=== PATIENT | male | born 1975 | race Caucasian/White ===

== ENCOUNTER → 2022-11-10 15:02 | Outpatient (REF) | payer OTHER, SELFPAY ==
--- NOTE | 2022-11-10 15:13 | CA_ITS ---
Transthoracic Echocardiogram Patient (Last, First, Middle): Ronald Perry, Gender: Male Date of : 1975 Age: 47 Procedure Date: 11/10/2022 Procedure Type: Transthoracic Echocardiogram Location: [place] Height: 185.42 cm Weight: 132.45 kg BSA: 2.53 m2 Heart Rate: 92 bpm BP: 110 / 70 mmHg Clinical Trial Assistant: JORGE Referring MD: Yvonne Delgadillo NP Waist Presser: Ron Robledo MD Symptoms: ATRIAL FLUTTER I48.92 Study Quality: Adequate w contrast ECG Rhythm: Atrial flutter Conclusions: - 1. Severe LV systolic dysfunction with LVEF of 25-30% 2. At least mildly dilated left atrium 3. Normal cardiac valvular Doppler 4. Normal RV systolic pressure 5. No gross pericardial effusion Findings Procedure Information Contrast agent, definity, is being given per protocol without apparent complications. Left Ventricle Normal left ventricular cavity size. There is normal left ventricular wall thickness. The left ventricular systolic function is severely decreased. The visually estimated ejection fraction is between 25-30%. Diastolic function is indeterminate on the basis of available data. Right Ventricle Normal right ventricular cavity size and systolic function. Atria The left atrium is mildly dilated. Interatrial shunt cannot be excluded. The right atrium is likely dilated. Aortic Valve Normal aortic valve structure and function. There is no aortic valve stenosis. There is no aortic valve regurgitation. Mitral Valve Normal mitral valve structure and function. There is trace mitral valve regurgitation. There is no mitral valve stenosis. Pulmonic Valve The pulmonic valve is likely normal. Tricuspid Valve Normal tricuspid valve structure. There is mild tricuspid valve regurgitation. The right ventricular systolic pressure is normal. The right ventricular systolic pressure is 31 mmHg. Normal right atrial pressure. There is no evidence of pulmonary hypertension. Great Vessels All visible segments of the aorta are normal in size. The pulmonary artery was not well visualized. Venous The inferior vena cava is normal in size and collapses greater than 50% with inspiration. Pericardium/Pleural There is no evidence of pericardial effusion. Prior Study Comparison No prior study available for comparison. Measurements 2D Linear Measurements IVSd: 1.05 0.6-0.9/0.6-1.0 cm LVIDd: 5.46 3.9-5.3/4.2-5.9 cm LVIDd Index: 2.16 2.4-3.2/2.2-3.1 cm/m2 LVIDs: 4.07 2.0-3.6 cm LVPWd: 0.84 0.7-1.1 cm LA Diam: 4.40 2.7-3.8/3.0-4.0 cm LAIDs Index: 1.74 1.5-2.3 cm/m2 LV Mass: 243.83 67-162/88-224 g LV Mass Index: 96.38 43-95/49-115 g/m2 LVOT Diam: 2.50 3.0+(-)1.3 cm 2D Systolic Function EF 4C: 30.50 >55% EF 2C: 27.70 >55% EF BiP: 29.10 >55% Aortic Valve AoV Pk Maxime: 1.01 AoV Pk Grad: 4.00 ITZEL: 4.55 LVOT LVOT Pk Maxime: 0.94 LVOT Mn Maxime: 0.76 LVOT VTI: 0.19 LVOT Pk Grad: 4.00 LVOT Mn Grad: 3.00 LVOT Diam: 2.50 LVOT Area: 4.91 Right Ventricle TAPSE (mm): 20.70 TVS' Maxime: 12.00 Tricuspid Valve TR Pk Maxime: 2.39 TR Pk Grad: 23.00 RA Press: 8.00 RVSP: 31.00 Great Vessels Aorta Sinus of Valsalva: 3.90 2.0-3.5 cm Ao Asc: 3.60 2.1-3.4 cm Pulmonary Valve PV Pk Maxime: 0.70 Peak PV Grad: 2.00 Updated in Other Vendor System with Status of Final Ron Robledo MD electronically signed on 11/11/2022 3:43:14 PM with status of Final
== END ==
LOC: HO.CARD 15:02
PROVIDERS: Visit Provider Nurse Practitioner
DX: I48.92 Unspecified atrial flutter (principal)
CPT/HCPCS: 93306; Q9957

== ENCOUNTER → 2022-11-14 09:00 | Outpatient (BNVA) | payer OTHER, SELFPAY | PROVIDERS: PCP Nurse Practitioner; Visit Provider Internal Medicine Cardiovascular Disease | DX: I48.92 Unspecified atrial flutter (principal) | CPT/HCPCS: 93005 ==

== ENCOUNTER 2022-11-16 12:11 | Day surgery (SDC) | payer OTHER, SELFPAY ==
[2022-11-16] VITALS (7 sets, daily range): BP systolic 103–130; BP diastolic 53–81; PULSE 62–132; RESP 14–18; TEMP 36.2–37.1; O2SAT 95–99; BMI 38.5
[2022-11-16] MEDS: Lactated Ringers 1,000 ML 50 ML IVCONT (13:06)
--- NOTE | 2022-11-16 13:06 | P.CONAN_ITS ---
HPI - Anesthesia Eval Consult details Narrative: for cardioversion PMFSH Active Problems Active Problems: All Active Problems (Updated 11/16/22 @ 12:15 by Keyla De Luna RN) Cardiomyopathy (Acute) Atrial flutter with rapid ventricular response (Acute) Past Medical History Medical History (Updated 11/16/22 @ 12:15 by Keyla De Luna RN) Depression Family History Family History Father No problems noted. Mother No problems noted. Family history of problems with anesthesia: No Surgical History Surgical History (Updated 11/16/22 @ 12:19 by Keyla De Luna RN) [place] teeth extracted History of Problems with Anesthesia: No Social History Social History Patient Tobacco Use Status: Current someday Tobacco user Use of substances other than those prescribed or required for medical reasons: Yes Substance Use Type Other:: vape Are you DNR?: No Advance Directives: No Advance Directives Information Provided: Yes Meds Allergies Allergy/AdvReac Type Severity Reaction Status Date / Time No Known Allergies Allergy Verified 11/14/22 09:07 Active Medications: Current Medications Lactated Ringer's (Lr) 1,000 mls @ 50 mls/hr IVCONT .Q20H [facility] Home Medications Medication Instructions Recorded Confirmed Last Taken Type bupropion HCl 150 mg tablet,12 hr 150 mg PO DAILY 11/14/22 11/16/22 Unknown History sustained-release (Wellbutrin SR) bupropion HCl 300 mg 24 hr tablet, 300 mg PO QAM 11/14/22 11/16/22 Unknown History extended release (Wellbutrin XL) digoxin 250 mcg (0.25 mg) tablet 250 mcg PO DAILY 11/14/22 11/16/22 Unknown History metoprolol tartrate 25 mg tablet 25 mg PO BID 11/14/22 11/16/22 11/16/22 10:30 History rivaroxaban 20 mg tablet (Xarelto) 20 mg PO DAILY 11/14/22 11/16/22 11/16/22 10: 30 History trazodone 50 mg tablet 25 mg PO DAILY 11/14/22 11/16/22 Unknown History Exam Exam Date and Time: November 16, 2022 1306 Height,Weight and Vital Signs: Height 6 ft 1 in Weight 132.449 kg Last Vital Signs Temp 98.3 F 11/16/22 12:41 Pulse 132 H 11/16/22 12:41 Resp 18 11/16/22 12:41 BP 104/75 11/16/22 12:41 Pulse Ox 95 11/16/22 12:41 O2 Del Method Room Air 11/16/22 12:41 Airway Mallampati Class: III TM Dist: <=3cm Neck ROM: Full Heart: ok. afib/flut Lungs: ok Assessment and Plan Assessment Anesthesia Assessment: Anesthesia Plan Discussed and Chart Reviewed Final Anesthetic Review Family History of Problems with Anesthesia: No History of Problems with Anesthesia: No NPO: Yes ASA Class: III Final Preanesthetic Review: No Changes in Pt Med Stat, Meds/Allgs Chart Reviewed, Consent Obtained/Reviewed and Anes Risks/Benef Reviewed Patient Risk: Intermediate Procedure Risk: Intermediate Anesthetic Plan Anesthetic Plan: MAC: and Agree w/ Assess. and Plan Disposition: Standard PACU
--- NOTE | 2022-11-16 13:16 | MHC.SHP ---
Pre-Procedural Eval Section A Date of Service: 11/16/22 The patient is an INPATIENT: No Changes since office visit: Yes Patient answered all questions; No Cold of Flu in the past 2 weeks, No New Medical Problems and No Changes in Medication The History & Physical has been completed within 30 days and I have reviewed it.: Yes Section B Chief Complaint: afib Allergies: Allergies Allergy/AdvReac Type Severity Reaction Status Date / Time No Known Allergies Allergy Verified 11/14/22 09:07 Plan I have reviewed the history and physical and performed a pertinent physical examination on my patient. No changes have occurred unless specified. Time Spent With Patient Time: Total time managing care of this patient today ____ minutes.
--- NOTE | 2022-11-16 14:14 | ECG_ITS ---
Test Reason : s/p cardioversion Blood Pressure : / mmHG Vent. Rate : 066 BPM Atrial Rate : 066 BPM P-R Int : 212 ms QRS Dur : 088 ms QT Int : 376 ms P-R-T Axes : -06 004 024 degrees QTc Int : 394 ms Sinus rhythm with 1st degree A-V block Otherwise normal ECG No previous ECGs available Referred By: Ron Robledo Electronically Signed By:ARABELLA VASQUEZ
--- NOTE | 2022-11-16 14:15 | P.PNCAR_ITS ---
Cardioversion Procedure Note Cardioversion Date of Procedure: Today Ordering Provider: Myself Performing Provider: Myself Indication for Procedure: Persistent symptomatic atrial flutter with severe LV systolic dysfunction Pre-Op Diagnosis: Same Post-Op Diagnosis: None Performed with Transesophageal Echo: No History: See my office consult Consent: Verbal and Written consent was obtained from the patient before starting and after confirming oral anticoagulation use and withholding of digoxin. The patient was made aware of the risk of synchronized cardioversion including benefits and alternatives Procedure: After consent obtained, cardioversion pads were attached anteroposterior configuration and the patient was sedated by the anesthesia team. Once adequate sedation achieved, patient was delivered 200 joules of biphasic synchronized energy in anteroposterior configuration Complications: None Impression: Successful conversion to sinus rhythm Recommendations: 1. 12 lead EKG 2. Discontinue digoxin 3. Continue metoprolol and Xarelto 4. Outpatient sleep study 5. Avoidance of stimulants next 6. Will follow-up as outpatient after Holter yeny weeks
== END 2022-11-16 15:16 | disposition home or self-care (01) ==
PROVIDERS: PCP Nurse Practitioner; Visit Provider Internal Medicine Cardiovascular Disease
PROC: 5A2204Z Restoration of Cardiac Rhythm, Single (ICD-10-PCS; principal; 2022-11-16 13:40)
DX: I48.92 Unspecified atrial flutter (principal); I42.9 Cardiomyopathy, unspecified; Z79.01 Long term (current) use of anticoagulants; Z87.891 Personal history of nicotine dependence
CPT/HCPCS: 92960; 93005

== ENCOUNTER → 2022-12-06 13:08 | Outpatient (REF) | payer OTHER, SELFPAY ==
--- NOTE | 2022-12-06 13:12 | HM_ITS ---
Conclusion: 1. Patient was monitored for total period of 2 days 2. Baseline was sinus rhythm with average heart of 63 beats per minute 3. Frequent sinus bradycardia noted with 45% of time heart rate below 60 beats per minute 4. No significant pauses noted 5. No patient reported symptoms MTDD
== END ==
LOC: HO.CARD 13:08
PROVIDERS: Visit Provider Internal Medicine Cardiovascular Disease
DX: I48.92 Unspecified atrial flutter (principal)
CPT/HCPCS: 93225

== ENCOUNTER → 2022-12-08 15:05 | Outpatient (REF) | payer OTHER, SELFPAY ==
--- NOTE | 2022-12-08 15:09 | CA_ITS ---
Transthoracic Echocardiogram Patient (Last, First, Middle): Ronald Perry, Gender: Male Date of : 1975 Age: 47 Procedure Date: 12/08/2022 Procedure Type: Transthoracic Echocardiogram Location: [place] Height: 185.42 cm Weight: 129.73 kg BSA: 2.51 m2 Heart Rate: 61 bpm BP: 102 / 82 mmHg Nuclear Medicine Tech: ALAN Referring MD: Ron Robledo MD Tractor Trailer Moving Van Driver: Ron Robledo MD Symptoms: I42.9 - Cardiomyopathy, unspecified Study Quality: Adequate/Limited echo ordered ECG Rhythm: Sinus Conclusions: - Normal LV systolic function with LVEF of 55-60% Findings Procedure Information Contrast agent, definity, is being given per protocol without apparent complications. Left Ventricle Normal left ventricular size, thickness, and systolic function. The visually estimated ejection fraction is between 55-60%. Spectral Doppler is indicative of a normal filling pattern. Prior Study Comparison Significant changes compared to prior study dated: 11/10/2022. LV systolic function is normalized Measurements 2D Linear Measurements IVSd: 1.00 0.6-0.9/0.6-1.0 cm LVIDd: 5.51 3.9-5.3/4.2-5.9 cm LVIDd Index: 2.20 2.4-3.2/2.2-3.1 cm/m2 LVIDs: 3.50 2.0-3.6 cm LVPWd: 1.03 0.7-1.1 cm LV Mass: 271.30 67-162/88-224 g LV Mass Index: 108.09 43-95/49-115 g/m2 2D Systolic Function EF 4C: 55.00 >55% EF 2C: 56.20 >55% EF BiP: 55.00 >55% Mitral Valve MV Pk E: 0.87 MV PK A: 0.68 MV Decel Time: 238.00 E/A: 1.30 E'Lateral: 11.60 E'Medial: 7.72 E/E' Med: 11.30 E/E' Lat: 7.50 PHT: 70.00 MVA PHT: 3.14 Decel [place]: 3.66 Diastolic Function MV Pk E: 0.87 MV Pk A: 0.68 E/A: 1.30 E'Medial: 7.72 E/E' Med: 11.30 E' Laterial: 11.60 E/E' Lat: 7.50 Right Ventricle TAPSE (mm): 29.80 TVS' Maxime: 13.40 Tricuspid Valve RA Press: 8.00 Updated in Other Vendor System with Status of Final Ron Robledo MD electronically signed on 12/10/2022 10:18:27 AM with status of Final
== END ==
LOC: HO.CARD 15:05
PROVIDERS: PCP Nurse Practitioner; Visit Provider Internal Medicine Cardiovascular Disease
DX: I42.9 Cardiomyopathy, unspecified (principal)
CPT/HCPCS: 93308; Q9957

== ENCOUNTER → 2023-07-26 09:59 | Outpatient (REF) | payer OTHER, SELFPAY ==
--- NOTE | 2023-07-26 10:03 | CA_ITS ---
Transthoracic Echocardiogram Patient (Last, First, Middle): Ronald Perry, Gender: Male Date of : 1975 Age: 48 Procedure Date: 07/26/2023 Procedure Type: Transthoracic Echocardiogram Location: [facility] Height: 185.42 cm Weight: 121.11 kg BSA: 2.43 m2 Heart Rate: bpm BP: 120 / 75 mmHg Extractor Loader And Unloader: ALAN Referring MD: Aarti Marsh PA-C Symptoms: I42.0 CARDIOMYOPATHY Study Quality: Adequate with contrast ECG Rhythm: Sinus Conclusions: - The left ventricular systolic function is normal. The calculated ejection fraction is 61% by biplane method. - No obvious valvular pathology seen on this study. Findings Procedure Information Contrast agent, definity, is being given per protocol without apparent complications. Left Ventricle Normal left ventricular cavity size. There is mildly increased left ventricular wall thickness. The left ventricular systolic function is normal. The calculated ejection fraction is 61% by biplane method. There is no evidence of regional wall motion abnormalities. Diastolic function is normal for age. Right Ventricle Mildly increased right ventricular cavity size. There is normal right ventricular systolic function. Atria Both atria are normal in size. Aortic Valve There is a normal trileaflet aortic valve. There is mild calcification of the aortic valve. There is no aortic valve stenosis. There is no aortic valve regurgitation. Mitral Valve The mitral valve appears normal. There is no mitral valve regurgitation. There is no mitral valve stenosis. Pulmonic Valve The pulmonic valve is likely normal. Tricuspid Valve There is trace tricuspid valve regurgitation. There is no evidence of pulmonary hypertension. Great Vessels The asc aorta is normal in size. Venous The inferior vena cava is normal in size and collapses greater than 50% with inspiration. Pericardium/Pleural There is no evidence of pericardial effusion. Prior Study Comparison No significant change compared to prior study dated: 12/08/2022. Recommendations, Care & Conclusions No obvious valvular pathology seen on this study. Measurements 2D Linear Measurements IVSd: 1.08 0.6-0.9/0.6-1.0 cm LVIDd: 5.35 3.9-5.3/4.2-5.9 cm LVIDd Index: 2.20 2.4-3.2/2.2-3.1 cm/m2 LVIDs: 3.52 2.0-3.6 cm LVPWd: 1.01 0.7-1.1 cm LA Diam: 4.10 2.7-3.8/3.0-4.0 cm LAIDs Index: 1.69 1.5-2.3 cm/m2 LV Mass: 269.05 67-162/88-224 g LV Mass Index: 110.72 43-95/49-115 g/m2 LVOT Diam: 2.40 3.0+(-)1.3 cm 2D Systolic Function EF 4C: 61.00 >55% EF 2C: 59.10 >55% EF BiP: 60.90 >55% Mitral Valve MV Pk E: 0.68 MV PK A: 0.60 MV Decel Time: 232.00 E/A: 1.10 E'Lateral: 10.90 E'Medial: 7.83 E/E' Med: 8.70 E/E' Lat: 6.20 PHT: 68.00 MVA PHT: 3.24 Decel [place]: 2.93 Aortic Valve AoV Pk Maxime: 1.34 AoV Mn Maxime: 0.97 AoV VTI: 0.33 AoV Pk Grad: 7.00 Aov Mn Grad: 4.00 ITZEL Cont.VTI: 3.34 LVOT LVOT Pk Maxime: 1.09 LVOT Mn Maxime: 0.75 LVOT VTI: 0.24 LVOT Pk Grad: 5.00 LVOT Mn Grad: 3.00 LVOT Diam: 2.40 LVOT Area: 4.52 Diastolic Function MV Pk E: 0.68 MV Pk A: 0.60 E/A: 1.10 E'Medial: 7.83 E/E' Med: 8.70 E' Laterial: 10.90 E/E' Lat: 6.20 Right Ventricle TAPSE (mm): 24.90 TVS' Maxime: 13.50 Tricuspid Valve TR Pk Maxime: 2.09 TR Pk Grad: 17.00 RA Press: 3.00 RVSP: 20.00 Great Vessels Aorta Sinus of Valsalva: 4.14 2.0-3.[address] [place]: 3.50 1.7-3.4 cm Ao Asc: 3.50 2.1-3.4 cm Ao Arch: 2.90 Updated in Other Vendor System with Status of Final Otf Rae MD electronically signed on 07/27/2023 11:53:43 AM with status of Final
== END ==
LOC: HO.CARD 09:59
PROVIDERS: PCP Nurse Practitioner; Visit Provider Physician Assistant
DX: I42.9 Cardiomyopathy, unspecified (principal)
CPT/HCPCS: 93306; Q9957

== ENCOUNTER → 2023-07-26 10:03 | Outpatient (BNV) | payer OTHER, SELFPAY | PROVIDERS: PCP Nurse Practitioner; Visit Provider Internal Medicine | DX: I42.0 Dilated cardiomyopathy (principal) | CPT/HCPCS: 93306 ==

== ENCOUNTER 2023-07-31 15:05 | Outpatient (AMB) | payer OTHER, SELFPAY ==
--- NOTE | 2023-07-31 15:13 | MHC.OFFVIS ---
Intake Vital Signs 07/31/23 15:14 Height 6 ft 1 in Weight 291 lb 7.218 oz BMI 38.4 BP 120/64 Blood Pressure Location Lt brachial Position Sitting Pulse 89 Intake Visit Reasons: Preop colonoscopy Intake Note: preop colonoscopy/ pt its feeling fine. Field Support Representative Required: No Accompanied by: Self / Same As Patient Allergies No Known Allergies Allergy (Verified 11/14/22 09:07) Medication List - Last Reconciled 07/31/23 by Ron Robledo MD bupropion HCl (Wellbutrin SR) 150 mg PO DAILY bupropion HCl (Wellbutrin XL) 300 mg PO QAM trazodone 25 mg PO DAILY HPI HPI Comments History of Present Illness Details Ronald comes for follow-up after a long gap. He had a cardioversion done acutely in November due to difficult control atrial flutter with severe LV systolic dysfunction. Since then he had echocardiogram in April which has shown improvement in LV ejection fraction 55-60%. No follow-up since then. In December he had undergone ablation for the atrial flutter which was successfully completed. However I did not get any copy of the report. Since then he had another echocardiogram recently which showed normal LV ejection fraction of 60 65%. Has also modified his lifestyle reduced his caffeine intake by 50%. Also started exercising more and is been losing weight. He is avoiding other stimulants such as Adderall. He is noted above 4 times that he has not felt well and he has done EKG and is noted to have atrial fibrillation. He now thinks that this might be related to use of alcohol at that time. He has currently not on any cardiac medications. He continues to have issues with daytime somnolence. He does think he might have apnea but no workup has been done so far. [facility] Medical History Obesity Paroxysmal atrial fibrillation Atrial flutter with rapid ventricular response Cardiomyopathy Depression Surgical History [place] teeth extracted Family History Father No problems noted. Mother No problems noted. Social History Patient Tobacco Use Status: Current someday Tobacco user Review of Systems Const Reports chills, Reports fatigue, Reports fever(s), Reports frequent falls, Reports weakness, Reports weight gain and Reports weight loss ENT Reports dizziness Card Reports chest pain, Reports leg edema, Reports lightheadedness, Reports palpitations, Reports dyspnea and Reports dyspnea on exertion Resp Reports cough, Reports dyspnea and Reports dyspnea on exertion GI Reports hematochezia Musc Reports abnormal gait, Reports muscle weakness, Reports numbness, Reports radiating pain into limb and Reports tingling Neuro Denies Abnormal speech present, Reports abnormal gait, Reports dizziness, Reports frequent falls, Reports numbness, Reports tingling and Reports weakness Endo Reports fatigue and Reports palpitations Physical Exam Vital Signs: Last Vital Signs Pulse 89 07/31/23 15:14 BP 120/64 07/31/23 15:14 BMI result Body Mass Index 38.4 Const General: cooperative, comfortable, no acute distress, alert, awake and Physically active Nutritional Appearance: obese Orientation/consciousness: patient oriented x3 Limitations: no limitations HEENT Head: Yes normocephalic and Yes atraumatic Neck Neck: Yes trachea midline, Yes supple and Yes no JVD Resp Effort & Inspection: normal respiratory effort Auscultation: clear to auscultation bilaterally Cardio Jugular venous distension: no JVD Rate: regular rate Rhythm: regular rhythm Heart sounds: S1 normal heart sound present, S2 normal heart sound present, no click, no gallops, no murmurs and no rubs GI Auscultation: normal bowel sounds Skin General skin exam: no rashes or lesions noted Neuro General: patient oriented x3 and no focal motor deficits Speech: No Abnormal speech present Extrem General: Yes no clubbing, cyanosis or edema Office Procedures EKG Details: EKG shows normal sinus rhythm with normal EKG [id number], Complete Assessment & Plan Assessment & Plan (1) Paroxysmal atrial fibrillation: Code(s): I48.0 - Paroxysmal atrial fibrillation Plan: Patient now with paroxysmal atrial fibrillation highly symptomatic confirmed by EKG monitoring at home. Thinks these episodes might be triggered by use of alcohol. Advised him to stay of all stimulants. Also advised to continue to participate in lifestyle modification with weight reduction as well as regular physical activity. I think he has high likelihood of underlying obstructive sleep apnea would suggest him to have home sleep study done in the near future. Continue to avoid stimulants such as caffeine and alcohol and reduce overall caffeine intake. I have advised him to start logging his symptoms as to the duration which may require further medical therapy. He is status post ablation for atrial flutter and has remained in sinus rhythm mostly with significant improvement in LV systolic function. Good prognosis with this was discussed. Overall long-term management was discussed in details any understands agrees. Will follow up in the clinic in 6 months time, sooner p.r.n.. Thank you for allowing me to partake in his care Orders: Orders RT home sleep study Today G47.10 - Hypersomnia, unspecified, I48.0 - Paroxysmal atrial fibrillation Coding Level of Care Code Est Pt Level 4 (22935) Diagnoses Paroxysmal atrial fibrillation I48.0 CPT Codes EKG - CPT: 01373-[id number], Complete ([id number])
[2023-07-31 15:14] VITALS: BP 120/64; PULSE 89; BMI 38.4
== END 2023-07-31 15:53 | disposition home or self-care (01) ==
PROVIDERS: PCP Nurse Practitioner; Visit Provider Internal Medicine Cardiovascular Disease
DX: I48.0 Paroxysmal atrial fibrillation (principal)
CPT/HCPCS: 93010; 99214

== ENCOUNTER → 2023-07-31 15:05 | Outpatient (BNVA) | payer OTHER, SELFPAY | PROVIDERS: PCP Nurse Practitioner; Visit Provider Internal Medicine Cardiovascular Disease | DX: I48.0 Paroxysmal atrial fibrillation (principal); G47.10 Hypersomnia, unspecified | CPT/HCPCS: 93005 ==

== ENCOUNTER 2024-01-25 14:50 | Outpatient (AMB) | payer OTHER, SELFPAY ==
[2024-01-25 15:00] VITALS: BP 112/64; PULSE 79; BMI 38.7
--- NOTE | 2024-01-25 15:00 | A.OFFVIS_ITS ---
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 He is status post flutter, pulmonary vein isolation as well as left atrial roof ablation procedure for atrial fibrillation as well as flutter. 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 Symptoms last for 5-10 minutes. He recently underwent a sleep study, do not have a copy of with resolves. He has also cut down his caffeine intake by 80%. He also is trying to exercise and participate in weight loss program but has not been very successful with it. [facility] Medical History Obesity Paroxysmal atrial fibrillation Atrial flutter with rapid ventricular response Cardiomyopathy Depression Surgical History [place] teeth extracted Family History Father No problems noted. Mother No problems noted. Social History Patient Tobacco Use Status: Current someday Tobacco user Review of Systems Const Denies chills, Denies fatigue, Denies fever(s), Denies frequent falls, Denies weakness, Denies weight gain and Denies weight loss ENT Denies dizziness Card Denies chest pain, Denies leg edema, Denies lightheadedness, Denies palpitations, Denies dyspnea, Denies dyspnea on exertion, Denies orthopnea and Denies other (loss of consciousness) Resp Denies cough, Denies dyspnea and Denies dyspnea on exertion GI Denies hematochezia and Denies change in stool character Musc Denies abnormal gait, Denies muscle weakness, Denies numbness, Denies radiating pain into limb and Denies tingling Neuro Denies Abnormal speech present, Denies abnormal gait, Denies dizziness, Denies frequent falls, Denies numbness, Denies tingling and Denies weakness Endo Denies fatigue and Denies palpitations Physical Exam Vital Signs: Last Vital Signs Pulse 79 01/25/24 15:00 BP 112/64 01/25/24 15:00 BMI result Body Mass Index 38.7 Const General: cooperative, comfortable, no acute distress, alert, awake and Physically active Nutritional Appearance: obese Orientation/consciousness: patient oriented x3 Limitations: no limitations HEENT Head: Yes normocephalic and Yes atraumatic Neck Neck: Yes trachea midline, Yes supple and Yes no JVD Resp Effort & Inspection: normal respiratory effort Auscultation: clear to auscultation bilaterally Cardio Jugular venous distension: no JVD Rate: regular rate Rhythm: regular rhythm Heart sounds: S1 normal heart sound present, S2 normal heart sound present, no click, no gallops, no murmurs and no rubs GI Auscultation: normal bowel sounds Skin General skin exam: no rashes or lesions noted Neuro General: patient oriented x3 and no focal motor deficits Speech: No Abnormal speech present Extrem General: Yes no clubbing, cyanosis or edema Office Procedures EKG Details: EKG shows normal sinus rhythm with low-voltage QRS 71 beats per minute otherwise normal EKG [id number], Complete Assessment & Plan Assessment & Plan (1) Paroxysmal atrial fibrillation: Code(s): I48.0 - Paroxysmal atrial fibrillation Category: Medical Plan: Highly symptomatic paroxysmal atrial fibrillation as well as flutter status post ablation both left-sided pulmonary vein isolation left atrial roof line along with atrial flutter ablation. He has had much reduced burden since then. He has also aggressively trying to modify his lifestyle. He has been worked up for sleeping done which I highly suspect in his case and if he does have a should be treated aggressively at this will prevent recurrent episodes of atrial fibrillation and prevent further persistent atrial fibrillation. Meanwhile given his symptoms was time on Cardizem CD 120 mg at suppertime. This was discussed with him. Continue reduction in his overall caffeine intake was discussed. Continue participate in aggressive weight loss program was discussed. He said he has been trying and he is getting a little frustrated. Consider bariatric surgery consultation. Overall otherwise he is doing well. He is advised to call me with worsening symptoms that may require antiarrhythmic drug therapy. Follow up in the clinic in 1 year's time after an echocardiogram. Thank you for allowing me to partake in his care Orders: Orders CA echo transthoracic complete 1 Year I48.0 - Paroxysmal atrial fibrillation Medications: New diltiazem HCl CD (Cardizem CD) 120 mg PO QPM 30 caps 11RF Coding Level of Care Code Est Pt Level 4 (68856) Diagnoses Paroxysmal atrial fibrillation I48.0 CPT Codes EKG - CPT: 30911-Cefrorrrwnawvqrjg, Complete ([id number])
== END 2024-01-25 15:36 | disposition home or self-care (01) ==
PROVIDERS: PCP Nurse Practitioner; Visit Provider Internal Medicine Cardiovascular Disease
DX: I48.0 Paroxysmal atrial fibrillation (principal)
CPT/HCPCS: 93010; 99214

== ENCOUNTER → 2024-01-25 14:50 | Outpatient (BNVA) | payer OTHER, SELFPAY | PROVIDERS: PCP Nurse Practitioner; Visit Provider Internal Medicine Cardiovascular Disease | DX: I48.0 Paroxysmal atrial fibrillation (principal) | CPT/HCPCS: 93005 ==

== ENCOUNTER 2025-01-15 15:23 | Outpatient (AMB) | payer OTHER, SELFPAY ==
--- NOTE | 2025-01-15 15:25 | MHC.OFFVIS ---
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 Patient with a history of sleep apnea, a flutter and AFib status post pulmonary vein isolation and left atrial roof ablation. Patient has been getting his symptoms of palpitations and episodes of AFib. Patient was started on diltiazem and has been taking it irregularly. Patient states that he has been getting more symptoms during the times when he is not on it and when he is consuming coffee. Patient is otherwise denying any exertional chest pain, shortness of breath, palpitations, dizziness, orthopnea, PND, leg edema, presyncope, or syncope. Patient notes that he has been working on weight loss with watchful eating. Patient also notes that he is going to be going away for 3 weeks in [place]. [facility] Medical History Obesity Paroxysmal atrial fibrillation Atrial flutter with rapid ventricular response Cardiomyopathy Depression Surgical History [place] teeth extracted Family History Father No problems noted. Mother No problems noted. Social History Patient Tobacco Use Status: Current someday Tobacco user Review of Systems Const Denies chills, Denies fatigue, Denies fever(s), Denies frequent falls, Denies weakness, Denies weight gain and Denies weight loss ENT Denies dizziness Card Denies chest pain, Denies leg edema, Denies lightheadedness, Denies palpitations, Denies dyspnea and Denies dyspnea on exertion Resp Denies cough, Denies dyspnea and Denies dyspnea on exertion GI Denies hematochezia Musc Denies abnormal gait, Denies muscle weakness, Denies numbness, Denies radiating pain into limb and Denies tingling Neuro Denies abnormal gait, Denies dizziness, Denies frequent falls, Denies numbness, Denies tingling and Denies weakness Endo Denies fatigue and Denies palpitations Physical Exam Vital Signs: Last Vital Signs Pulse 67 01/15/25 15:31 BP 100/70 01/15/25 15:31 BMI result Body Mass Index 39.3 Const General: cooperative, healthy appearing, comfortable and no acute distress Orientation/consciousness: patient oriented x3 HEENT Head: Yes normal to inspection Neck Neck: Yes normal visual inspection, Yes trachea midline and Yes supple Chest Chest palpation & inspection: normal inspection of the chest Resp Effort & Inspection: normal respiratory effort Auscultation: clear to auscultation bilaterally, no crackles, no rales, no rhonchi and no wheezes Cardio Jugular venous distension: no JVD Palpation: normal PMI Rate: regular rate Rhythm: regular rhythm Heart sounds: S1 normal heart sound present, S2 normal heart sound present, no click, no gallops, no murmurs and no rubs Peripheral pulses: Peripheral pulses 2+ throughout GI Inspection: Yes normal to inspection Palpation (GI): Soft to palpation Auscultation: normal bowel sounds Skin General skin exam: no rashes or lesions noted Neuro General: patient oriented x3 Extrem General: Yes normal to inspection, No no pedal edema and No calf tenderness Psych Appearance: grossly normal Mental Status: mental status grossly normal Speech and movement: Normal speech and movement present Office Procedures EKG Details: EKG today showed normal sinus rhythm, rate 67 beats per minute, low-voltage QRS, nonspecific T-wave abnormality (not new), [place], [place]. [id number], Complete Assessment & Plan Assessment & Plan (1) Paroxysmal atrial fibrillation: Code(s): I48.0 - Paroxysmal atrial fibrillation Category: Medical Plan: EKG today was normal sinus rhythm. History of symptomatic AFib and a flutter status post ablation. Patient had some recurrence of AFib since. Patient was started on Cardizem however has been taking it very irregularly. Emphasized importance of med adherence. Advised patient to be on Cardizem daily. And during the cases of breakthrough episodes, patient to take an extra dose. Advised to avoid caffeinated beverages or alcohol. Advised on continuing with weight lost management. Patient will be exploring this more with his PCP. Continue CPAP therapy. Blood pressure within normal limits. Advised heart healthy diet, regular exercise, losing weight, med compliance, and emphasized on stress medication strategies as well as avoiding caffeinated beverages. Follow up in 6 months. Asked patient to complete his echo. In the interim, patient will call the office with any concerns or change in symptoms. This note was generated using voice recognition software. While every effort has been made to ensure accuracy and proper certified medical transcriptionist, there may be occasional errors that could affect the content or meaning of the described symptoms. Orders: Orders AMB EKG-In Office Today I48.0 - Paroxysmal atrial fibrillation Coding Level of Care Code Est Pt Level 4 (29790) Complex EM visit Add On G2211 Diagnoses Paroxysmal atrial fibrillation I48.0 CPT Codes EKG - CPT: 13091-[id number], Complete ([id number]) Time Spent (min) 31 Comment Time spent in reviewing the chart, test results, assessment, counseling and documentation.
[2025-01-15 15:31] VITALS: BP 100/70; PULSE 67; BMI 39.3
== END 2025-01-15 15:57 | disposition home or self-care (01) ==
LOC: HO.HCS 15:24
DX: I48.0 Paroxysmal atrial fibrillation (principal)
CPT/HCPCS: 93010; 99214; G2211

== ENCOUNTER → 2025-01-15 15:23 | Outpatient (BNVA) | payer OTHER, SELFPAY | DX: I48.0 Paroxysmal atrial fibrillation (principal); I48.92 Unspecified atrial flutter; I42.9 Cardiomyopathy, unspecified | CPT/HCPCS: 93005 ==